=== PATIENT | female | born 1970 | race Hispanic/Latino ===

== ENCOUNTER 2018-03-14 09:01 | Emergency (ER) | payer BC, OTHER ==
[2018-03-14] MEDS ORDERED: IBUPROFEN 600 MG TABLET ONE (09:34)
== END 2018-03-14 11:24 | disposition home or self-care (01) ==
LOC: EDH 09:01
DX: S83.8X2A Sprain of other specified parts of left knee, initial encounter (principal); F32.9 Major depressive disorder, single episode, unspecified; Z98.51 Tubal ligation status; Z98.890 Other specified postprocedural states; Z72.0 Tobacco use; W18.39XA Other fall on same level, initial encounter; Y93.01 Activity, walking, marching and hiking; Y92.89 Other specified places as the place of occurrence of the external cause; Y99.8 Other external cause status
CPT/HCPCS: 73562; 73700